=== PATIENT | male | born 1955 | race Caucasian/White ===

== ENCOUNTER 2018-01-28 04:27 | Emergency (ER) | payer MEDICAID, MEDICARE, OTHER ==
[2018-01-28 05:52] LABS: BASO % 0.7 % (0.0-2.0); EOS # 0.1 K/uL (0.0-0.7); EOS % 1.1 % (0.0-4.0); HEMOGLOBIN 14.1 g/dL (12.0-18.0); LYMPH # 1.5 K/uL (1.0-4.3); LYMPH % 21.1 % (20.0-40.0); MEAN CELL VOLUME 90.6 fl (80.0-94.0); MEAN CORPUSCULAR HEMOGLOBIN 31.4 pg (27.0-31.0); MEAN CORPUSCULAR HGB CONC 34.7 g/dL (33.0-37.0); MONO # 0.4 K/uL (0.0-0.8); MONO % 5.8 % (0.0-10.0); NEUT % 71.3 % (50.0-75.0); RBC 4.5 Mil/uL (4.40-5.90); RED CELL DISTRIBUTION WIDTH 13.7 % (11.5-14.5); WHITE BLOOD COUNT 6.9 K/uL (4.8-10.8)
[2018-01-28 05:59] LABS: ALB/GLOB RATIO 1.3 (1.0-2.1); ALBUMIN 3.9 g/dL (3.5-5.0); ALT/SGPT 86 U/L (21-72); AST/SGOT 44 U/L (17-59); BLOOD UREA NITROGEN 14 mg/dl (9-20); CALCIUM 8.9 mg/dL (8.4-10.2); GFR AFRICAN-AMERICAN > 60; GFR NON-AFRICAN AMERICAN > 60
--- NOTE | 2018-01-28 06:36 | CT ---
EXAM: CT Head Without Intravenous Contrast CLINICAL HISTORY: 62 years old, male; Signs and symptoms; Other: Headache TECHNIQUE: Axial computed tomography images of the head/brain without intravenous contrast. All CT scans at this facility use one or more dose reduction techniques, viz.: automated exposure control; ma/kV adjustment per patient size (including targeted exams where dose is matched to indication; i.e. head); or iterative reconstruction technique. Coronal and sagittal reformatted images were created and reviewed. COMPARISON: CT HEAD OR BRAIN W/O CONT 2014-02-21 16:15 FINDINGS: Brain: Mild atrophy. No intracranial hemorrhage. No mass. No definite edema. Ventricles: No hydrocephalus. Bones/joints: No acute fracture. Chronic deformity nasal bones. Soft tissues: Unremarkable. Vasculature: Minimal atherosclerotic disease of intracranial arteries. Sinuses: Extensive mucosal thickening +/- minimal fluid of LEFT maxillary sinus. Mild mucosal thickening of ethmoid sinuses. Scattered minimal mucosal thickening of remaining sinuses. Mastoid air cells: No mastoid effusion. Orbits: Unremarkable as visualized. IMPRESSION: 1. No definite acute intracranial abnormality. 2. Sinus disease. 3. Incidental/non-acute findings are described above.
--- NOTE | 2018-01-28 06:49 | ED PDOC ---
HPI: Headache Time Seen by Provider: 01/28/18 05:10 Chief Complaint (Nursing): Headache Chief Complaint (Provider): Headache History Per: Patient History/Exam Limitations: no limitations Onset/Duration Of Symptoms: Days (x 7) Current Symptoms Are (Timing): Still Present Additional Complaint(s): 62 year old male with history of hypertension and dyslipidemia presents to the ED complaining of a headache and insomnia for one week. Patient states he gas been unable to sleep past 3 am. He had a prescription for his insomnia but symptoms are not improving. He denies nausea, vomiting, fever, neck pain, and photophobia. Past Medical History Reviewed: Historical Data Vital Signs: Last Vital Signs Temp 98.7 F 01/28/18 04:44 Pulse 69 01/28/18 04:44 Resp 18 01/28/18 04:44 BP 137/81 01/28/18 04:44 Pulse Ox 97 01/28/18 04:44 - Medical History PMH: HTN Other PMH: Dyslipidimea - Surgical History Surgical History: No Surg Hx - Family History Family History: States: Unknown Family Hx - Social History Current smoker - smoking cessation education provided: No Alcohol: None Drugs: Denies - Immunization History Hx Tetanus Toxoid Vaccination: No Hx Influenza Vaccination: No Hx Pneumococcal Vaccination: No - Home Medications Home Medications: Ambulatory Orders Medication Instructions Recorded Metoprolol 25 mg PO DAILY 02/20/14 Pravastatin 25 mg PO DAILY 02/20/14 Amoxicillin/Clavulanate [Augmentin 1 tab PO BID #14 tab 01/28/18 875 MG-125 MG] hydrOXYzine Pamoate [Vistaril] 25 mg PO HS PRN #7 cap 01/28/18 - Allergies Allergies/Adverse Reactions: Allergies Allergy/AdvReac Type Severity Reaction Status Date / Time No Known Allergies Allergy Verified 02/10/15 19:06 Review of Systems ROS Statement: Except As Marked, All Systems Reviewed And Found Negative Constitutional: Negative for: Fever Gastrointestinal: Negative for: Nausea, Vomiting Musculoskeletal: Negative for: Neck Pain Neurological: Positive for: Headache, Other (Insomnia) Physical Exam - Reviewed Nursing Documentation Reviewed: Yes Vital Signs Reviewed: Yes - Physical Exam Appears: Positive for: Non-toxic, No Acute Distress Head Exam: Positive for: ATRAUMATIC, NORMOCEPHALIC Skin: Positive for: Normal Color, Warm, Dry Eye Exam: Positive for: Normal appearance, EOMI, PERRL ENT: Positive for: Normal ENT Inspection Neck: Positive for: Normal, Supple Cardiovascular/Chest: Positive for: Regular Rate, Rhythm. Negative for: Murmur Respiratory: Positive for: Normal Breath Sounds. Negative for: Respiratory Distress Gastrointestinal/Abdominal: Positive for: Normal Exam, Soft. Negative for: Tenderness Back: Positive for: Normal Inspection. Negative for: L CVA Tenderness, R CVA Tenderness Extremity: Positive for: Normal ROM Neurologic/Psych: Positive for: Alert, Oriented - Laboratory Results Result Diagrams: 01/28/18 05:40 01/28/18 05:40 - ECG O2 Sat by Pulse Oximetry: 97 (RA) Pulse Ox Interpretation: Normal Medical Decision Making Medical Decision Making: Initial Impression: 62 year old male with insomnia and headache. Initial Plan: --Tylenol 325 mg PO --Heplock Insertion Time: 635 CT HEAD OR BRAIN W/O CONT FINDINGS: Brain: Mild atrophy. No intracranial hemorrhage. No mass. No definite edema. Ventricles: No hydrocephalus. Bones/joints: No acute fracture. Chronic deformity nasal bones. Soft tissues: Unremarkable. Vasculature: Minimal atherosclerotic disease of intracranial arteries. Sinuses: Extensive mucosal thickening +/- minimal fluid of LEFT maxillary sinus. Mild mucosal thickening of ethmoid sinuses. Scattered minimal mucosal thickening of remaining sinuses. Mastoid air cells: No mastoid effusion. Orbits: Unremarkable as visualized. IMPRESSION: 1. No definite acute intracranial abnormality. 2. Sinus disease. 3. Incidental/non-acute findings are described above. Dictated By: Bruce Ta MD Dictated Date/Time: 01/28/18635 Signed By: Bruce Ta MD Date Signed: 635 Transcribed By: [facility]AD Transcribe Date/Time : 01/28/18635 ACYP02/VRD Time: 646 Labs show no significant abnormalities. Patient is stable for discharge. Diagnosis: sinusitis and insomnia. Scribe Attestation: Documented by Aga Sorensen, acting as a scribe for Carlos Oshea MD. Provider Scribe Attestation: All medical record entries made by the Scribe were at my direction and personally dictated by me. I have reviewed the chart and agree that the record accurately reflects my personal performance of the history, physical exam, medical decision making, and the department course for this patient. I have also personally directed, reviewed, and agree with the discharge instructions and disposition. Disposition - Clinical Impression Clinical Impression: Headache, Insomnia - Disposition Disposition: Routine/Home Disposition Time: 06:47 Condition: STABLE Prescriptions: Amoxicillin/Clavulanate [Augmentin 875 MG-125 MG] 1 tab PO BID #14 tab hydrOXYzine Pamoate [Vistaril] 25 mg PO HS PRN #7 cap PRN Reason: for insomnia Instructions: Sinusitis in Adults, Insomnia Forms: [facility] (Urdu) Print Language: LUXEMBOURGISH
[2018-01-28 07:13] VITALS: BP 138/78; PULSE 78; RESP 16; TEMP 98.3; O2SAT 98
== END 2018-01-28 07:14 | disposition home or self-care (01) ==
LOC: H.ER 04:27
DX: R51 Headache (principal); G47.00 Insomnia, unspecified; E78.5 Hyperlipidemia, unspecified; I10 Essential (primary) hypertension; J32.9 Chronic sinusitis, unspecified

== ENCOUNTER 2018-09-18 17:04 | Observation (INO) | payer MEDICARE, MEDICAID ==
--- NOTE | 2018-09-18 17:55 | ED PDOC ---
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 states at approximately 1400 today pt. developed chest pain which is non-r adiating and localized to the L side of the chest. Reports he checked his BP at that time which was 178/103 therefore he took an additional dose of Metoprolol 25mg which he had already taken. Further reports throughout the day he's felt weak. Further states 3 months ago he had a stress test done with Dr. Bautista which was normal and he did not require any intervention. Denies SOB, hemoptysis, leg pain, trauma, headache (contrary to triage note), fever, cough, numbness, tingling, abdominal pain. Past Medical History Reviewed: Historical Data, Nursing Documentation, Vital Signs Vital Signs: Last Vital Signs Temp 98.6 F 09/18/18 17:06 Pulse 88 09/18/18 17:06 Resp 18 09/18/18 17:06 BP 172/98 H 09/18/18 17:06 Pulse Ox 99 09/18/18 17:06 - Medical History PMH: HTN - Family History Family History: States: Unknown Family Hx - Immunization History Hx Tetanus Toxoid Vaccination: No Hx Influenza Vaccination: No Hx Pneumococcal Vaccination: No - Home Medications Home Medications: Ambulatory Orders Medication Instructions Recorded Metoprolol 25 mg PO DAILY 02/20/14 Pravastatin 25 mg PO DAILY 02/20/14 Amoxicillin/Clavulanate [Augmentin 1 tab PO BID #14 tab 01/28/18 875 MG-125 MG] hydrOXYzine Pamoate [Vistaril] 25 mg PO HS PRN #7 cap 01/28/18 - Allergies Allergies/Adverse Reactions: Allergies Allergy/AdvReac Type Severity Reaction Status Date / Time No Known Allergies Allergy Verified 02/10/15 19:06 Review of Systems ROS Statement: Except As Marked, All Systems Reviewed And Found Negative Cardiovascular: Positive for: Chest Pain Physical Exam - Reviewed Nursing Documentation Reviewed: Yes Vital Signs Reviewed: Yes - Physical Exam Appears: Positive for: Well, Non-toxic, No Acute Distress Head Exam: Positive for: ATRAUMATIC, NORMAL INSPECTION, NORMOCEPHALIC Skin: Positive for: Normal Color, Warm. Negative for: Rash Eye Exam: Positive for: EOMI, Normal appearance, PERRL ENT: Positive for: Normal ENT Inspection Neck: Positive for: Normal, Painless ROM Cardiovascular/Chest: Positive for: Regular Rate, Rhythm, Chest Non Tender. Negative for: Tachycardia Respiratory: Positive for: Normal Breath Sounds. Negative for: Respiratory Distress Gastrointestinal/Abdominal: Positive for: Normal Exam, Soft. Negative for: Tenderness, Distended Back: Positive for: Normal Inspection Extremity: Positive for: Normal ROM. Negative for: Pedal Edema, Calf Tenderness (b/l) Neurologic/Psych: Positive for: Alert, Oriented (x3), Other (equal electrician yard strength b/l). Negative for: Aphasia, Facial Droop - Laboratory Results Result Diagrams: 09/18/18 18:15 09/18/18 18:15 - ECG ECG: Positive for: Interpreted By Me ECG Rhythm: Positive for: Sinus Rhythm. Negative for: ST/T Changes Rate: 87 O2 Sat by Pulse Oximetry: 99 - Radiology X-Ray: Interpreted by Me (cxr) X-Ray Interpretation: No Acute Disease - Progress ED Course And Treament: Labs, EKG, ASA chew, CXR, continuous cardiac monitoring ordered. 1950 Case and labs d/w Dr. Rendon who recommends 2nd troponin and enalapril 10mg PO. As per HEART pathway pt. is at 3% risk at this time. Results and plan d/w patient and family who agree to 2nd troponin. 2nd troponin ordered to be drawn at 5. RN made aware. Enalapril 10mg PO ordered. Disposition - Clinical Impression Clinical Impression: Chest pain - Patient ED Disposition Is Patient to be Admitted: Transfer of Care (Signed out to Kathleen GUNN pending 2nd troponing and re-eval) - Disposition Disposition Time: 20:03 Condition: FAIR Forms: [facility] (Frisian)
[2018-09-18 18:25] LABS: BASO # 0.1 K/uL (0.0-0.2); BASO % 0.8 % (0.0-2.0); EOS % 0.5 % (0.0-4.0); LYMPH # 1.9 K/uL (1.0-4.3); LYMPH % 20.2 % (20.0-40.0); MEAN CELL VOLUME 90.9 fl (80.0-94.0); MEAN CORPUSCULAR HEMOGLOBIN 31.3 pg (27.0-31.0); MEAN CORPUSCULAR HGB CONC 34.4 g/dL (33.0-37.0); MEAN PLATELET VOLUME 9.6 fl (7.2-11.7); MONO # 0.7 K/uL (0.0-0.8); MONO % 7.2 % (0.0-10.0); NEUT # 6.7 K/uL (1.8-7.0); NEUT % 71.3 % (50.0-75.0); NRBC % 0.1 % (0.0-0.0); RBC 4.47 Mil/uL (4.40-5.90); RED CELL DISTRIBUTION WIDTH 13.5 % (11.5-14.5); WHITE BLOOD COUNT 9.5 K/uL (4.8-10.8)
[2018-09-18 18:37] LABS: ALB/GLOB RATIO 1.3 (1.0-2.1); ALBUMIN 4.3 g/dL (3.5-5.0); ALT/SGPT 61 U/L (21-72); AST/SGOT 37 U/L (17-59); BLOOD UREA NITROGEN 18 mg/dl (9-20); CALCIUM 9.3 mg/dL (8.4-10.2); GFR NON-AFRICAN AMERICAN > 60
--- NOTE | 2018-09-18 23:05 | ED PDOC ---
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 Patient states he is still with fatigue and left-sided chest pain Case discussed with Dr. Evans, medical service on-call, for placement in observation; recommends cardiology consult Disposition - Clinical Impression Clinical Impression: Chest pain - POA Present On Arrival: None - Disposition Disposition: Hospitalized as Observation Patient Disposition Time: 23:05 Condition: FAIR
[2018-09-19 05:51] LABS: HDL CHOLESTEROL 42 MG/DL (30-70)
[2018-09-19 06:02] LABS: LDL CHOLESTEROL 80 mg/dL (0-129)
[2018-09-19] MEDS: Pantoprazole 40 mg EC Tab PO SCH (08:53)
[2018-09-19] MEDS: Metoprolol Succinate 50 mg XL Tab PO SCH (08:53)
[2018-09-19] MEDS: Enoxaparin 40 mg Syringe SC SCH (08:55)
--- NOTE | 2018-09-19 12:51 | RAD ---
Date of service: 09/18/2018 HISTORY: chest pain COMPARISON: 12/11/2013 FINDINGS: LUNGS: No active pulmonary disease. PLEURA: No significant pleural effusion identified, no pneumothorax apparent. CARDIOVASCULAR: No atherosclerotic calcification present No radiographic findings to suggest acute or significant cardiovascular disease. OSSEOUS STRUCTURES: No significant abnormalities. VISUALIZED UPPER ABDOMEN: Normal. OTHER FINDINGS: None. IMPRESSION: No active disease. No significant interval change compared to the prior examination(s).
--- NOTE | 2018-09-19 14:27 | CARD ---
APPROVED REPORT Date of service: 09/18/2018 EKG Measurement Heart [id number] <Conclusion> Normal sinus rhythm Normal ECG
--- NOTE | 2018-09-19 15:47 | HP ---
SUBJECTIVE: Mr. Braden is a 63-year-old male who was admitted via the emergency room because of chest pain on the left side that started on the day of admission. He was seen in the emergency room and had an elevated blood pressure of 178/103 and was therefore admitted to rule out acute coronary syndrome. PAST MEDICAL HISTORY: He has a history of hypertension. MEDICATIONS: Is on metoprolol at home. FAMILY HISTORY: Nonrevealing. SOCIAL HISTORY: Socially, he does not smoke or drink. REVIEW OF SYSTEMS: Essentially unremarkable. PHYSICAL EXAMINATION: GENERAL: The patient is alert, oriented, appears to be comfortable at present. VITAL SIGNS: Blood pressure 172/98 with a pulse of 88, respiratory rate 18. He is afebrile. O2 sat 99% on room air. SKIN: Shows fair turgor. HEENT: Pupils are reactive to light and accommodation. Mouth shows fair hygiene. JVP flat. LUNGS: Clear. HEART: Regular. No murmurs or gallop. No chest wall tenderness. ABDOMEN: Soft, nontender, organomegaly. EXTREMITIES: Show no edema or cyanosis. CENTRAL NERVOUS SYSTEM: Exam is grossly intact. LABORATORY DATA: WBC 9.5, hemoglobin 14, platelet count [id number]. Sodium 138, potassium 4.6, BUN of 18, creatinine 0.9, serum glucose 115. EKG, regular sinus rhythm, no ST changes. Troponin x3 negative. Chest x-ray No acute disease. IMPRESSION: Chest pain, hypertension, one has to rule the acute coronary syndrome. PLAN: The plan is cardiology evaluation. Further therapy will depend on cardiac clearance. Yoandy Evans MD
[2018-09-19] MEDS ORDERED: Nitroglycerin 2% Ointment Foilpak UD TOP ONE (18:10)
[2018-09-19] MEDS: Nitroglycerin 2% Ointment Foilpak UD TOP SCH ×2 (18:18→21:21)
--- NOTE | 2018-09-20 03:09 | CON ---
DATE: 09/19/2018 REASON FOR CONSULTATION: Chest pain. HISTORY OF PRESENT ILLNESS: The patient is a 63-year-old male, who presents because of chest discomfort involving the left side of the chest, and was reported to have high blood pressure of 178/103. The patient is being followed by Dr. Bautista, director prison, as an outpatient, but the patient does not recall having any cardiac intervention and denied any history of heart attack in the past. SOCIAL HISTORY: Nonsmoker, nondrinker. MEDICATIONS: , aspirin 81 mg once a day, Cozaar 25 mg once a day, Lexapro 20 mg once a day, Lipitor 40 mg once a day, Lovenox 40 mg subcutaneous once a day, Protonix 40 mg p.o. once a day, and Toprol XL 50 mg daily. PHYSICAL EXAMINATION: GENERAL: The patient is a middle-aged male, who does not appear to be in acute distress. VITAL SIGNS: Blood pressure 114/70, heart rate 84, temperature 97.9, and respirations 21. HEENT: Normocephalic. CHEST: Clear. HEART: S1 and S2, regular. ABDOMEN: Soft. EXTREMITIES: No edema or calf tenderness. EKG revealed sinus rhythm at the rate of 76. Consider old anterior infarct. Minimal voltage criteria for LVH. Echocardiographic study performed in 12/2014 revealed mild concentric LVH with normal ejection fraction, abnormal motion of the apical lateral and apical septal and basal inferior septal wall of the left ventricle. LABORATORY DATA: SMA-7 is within normal limits, except for glucose of 115. A total of four sets of troponin are negative. Lipid profile is within normal limits. Hemoglobin, hematocrit, white count, and platelet counts are within normal limits. Chest x-ray revealed borderline cardiomegaly and prominent bronchovascular markings. ASSESSMENT: 1. Chest pain, myocardial infarction is ruled out. 2. History of segmental hypokinesis, on an echocardiographic study performed in 12/2014. 3. Hypertension. 4. History of depression. RECOMMENDATIONS: Continue aspirin 81 mg once a day, Cozaar 25 mg once a day, Lipitor 40 mg once a day, Lovenox 40 mg subcutaneous once a day, Lopressor 50 mg once a day. Obtain D-dimer as well as an echocardiogram. Giovanny Mitchell MD
[2018-09-20] MEDS: Nitroglycerin 2% Ointment Foilpak UD TOP SCH (04:49)
[2018-09-20 06:24] VITALS: TEMP 98
--- NOTE | 2018-09-20 07:03 | CARD ---
APPROVED REPORT Date of service: 09/19/2018 EKG Measurement Heart [id number] <Conclusion> Normal sinus rhythm Minimal voltage criteria for LVH, may be normal variant Inferior infarct, age undetermined Abnormal ECG
[2018-09-20] MEDS: Pantoprazole 40 mg EC Tab PO SCH (08:39)
[2018-09-20] MEDS: Metoprolol Succinate 50 mg XL Tab PO SCH (08:40)
[2018-09-20] MEDS: Enoxaparin 40 mg Syringe SC SCH (08:41)
--- NOTE | 2018-09-20 09:45 | CP.PCM.PN ---
Subjective - Date & Time of Evaluation Date of Evaluation: 09/20/18 Time of Evaluation: 09:46 - Subjective Subjective: PT C/O FEELING DEPRESSED AND SUICIDAL 1 TO 1 NURSING CARE STARTED LAST NIGHT ACCORDING TO DAUGHTER,PT HAD A SIMILAR EPISODE RECENTLY AND WAS CONFINED TO THE PSYCH KIM HE IS CHEST PAIN FREE TODAY NO NEW CLINICAL FINDINGS Objective - Vital Signs/Intake and Output Vital Signs (last 24 hours): Temp Pulse Resp BP Pulse Ox 98 F 86 19 129/75 93 L 09/20/18 08:22 09/20/18 08:44 09/20/18 08:22 09/20/18 08:44 09/20/18 08:22 - Medications Medications: Current Medications Acetaminophen (Tylenol 325mg Tab) 650 mg PO Q4 PRN PRN Reason: Pain, moderate (4-7) Last Admin: 09/19/18 21:25 Dose: 650 mg Aspirin (Aspirin Chewable) 81 mg PO DAILY [facility] Last Admin: 09/20/18 08:39 Dose: 81 mg Atorvastatin Calcium (Lipitor) 40 mg PO DAILY [facility] Last Admin: 09/20/18 08:40 Dose: 40 mg Enoxaparin Sodium (Lovenox) 40 mg SC DAILY [facility]; Protocol Last Admin: 09/20/18 08:41 Dose: 40 mg Escitalopram Oxalate (Lexapro) 20 mg PO DAILY [facility] Last Admin: 09/20/18 08:40 Dose: 20 mg Losartan Potassium (Cozaar) 25 mg PO BID [facility] Last Admin: 09/20/18 08:44 Dose: 25 mg Metoprolol Succinate (Toprol Xl) 50 mg PO DAILY [facility] Last Admin: 09/20/18 08:40 Dose: 50 mg Nitroglycerin (Nitro-Bid 2% Oint) 1 ea TOP Q6 [facility] Last Admin: 09/20/18 04:49 Dose: Not Given Pantoprazole Sodium (Protonix Ec Tab) 40 mg PO DAILY [facility] Last Admin: 09/20/18 08:39 Dose: 40 mg Risperidone (Risperdal Tab) 3 mg PO DAILY [facility] Last Admin: 09/20/18 08:40 Dose: 3 mg - Labs Labs: 09/18/18 18:15 09/18/18 18:15 - Constitutional Appears: No Acute Distress - Head Exam Head Exam: ATRAUMATIC, NORMAL INSPECTION, NORMOCEPHALIC - Eye Exam Eye Exam: EOMI, Normal appearance, PERRL Pupil Exam: NORMAL ACCOMODATION, PERRL - ENT Exam ENT Exam: Mucous Membranes Moist, Normal Exam - Neck Exam Neck Exam: Full ROM, Normal Inspection. absent: Lymphadenopathy - Respiratory Exam Respiratory Exam: Clear to Ausculation Bilateral, NORMAL BREATHING PATTERN - Cardiovascular Exam Cardiovascular Exam: REGULAR RHYTHM, +S1, +S2. absent: Murmur - GI/Abdominal Exam GI & Abdominal Exam: Soft, Normal Bowel Sounds. absent: Tenderness - Rectal Exam Rectal Exam: NORMAL INSPECTION - Extremities Exam Extremities Exam: Full ROM, Normal Capillary Refill, Normal Inspection. absent: Joint Swelling, Pedal Edema - Back Exam Back Exam: NORMAL INSPECTION - Neurological Exam Neurological Exam: Alert, Awake, CN II-XII Intact, Normal Gait, Oriented x3 - Psychiatric Exam Psychiatric exam: Depressed, Flat Affect - Skin Skin Exam: Dry, Intact, Normal Color, Warm Assessment and Plan - Assessment and Plan (Free Text) Assessment: CHEST PAIN RESOLVED MAJOR DEPRESSION Plan: MEDICALLY CLEARED FOR TRANSFER TO PSYCH
--- NOTE | 2018-09-20 09:48 | CP.PCM.DIS ---
Provider - Provider Date of Admission: 09/18/18 23:02 Attending physician: Yoandy Evans MD Consults: 09/18/18 23:02 Cardiology Consult Stat Comment: am Consulting Provider: Giovanny Mitchell Consulting Physician: Giovanny Mitchell Reason for Consult: chest pain, HTN 09/19/18 08:00 Cardiology Consult Routine Comment: Consulting Provider: Giovanny Mitchell Consulting Physician: Giovanny Mitchell Reason for Consult: Cardiac evaluation 09/19/18 17:42 Psychiatry Consult Routine Comment: Consulting Provider: Anh Samuel Consulting Physician: Anh Samuel Reason for Consult: depression Time Spent in preparation of Discharge (in minutes): 30 Diagnosis - Discharge Diagnosis (1) Depressed Status: Acute (2) Chest pain Status: Acute Hospital Course - Lab Results Lab Results: Most Recent Lab Values WBC 9.5 K/uL (4.8-10.8) 09/18/18 18:15 RBC 4.47 Mil/uL (4.40-5.90) 09/18/18 18:15 Hgb 14.0 g/dL (12.0-18.0) 09/18/18 18:15 Hct 40.7 % (35.0-51.0) 09/18/18 18:15 MCV 90.9 fl (80.0-94.0) 09/18/18 18:15 MCH 31.3 pg (27.0-31.0) H 09/18/18 18:15 MCHC 34.4 g/dL (33.0-37.0) 09/18/18 18:15 RDW 13.5 % (11.5-14.5) 09/18/18 18:15 Plt Count 174 K/uL (130-400) 09/18/18 18:15 MPV 9.6 fl (7.2-11.7) 09/18/18 18:15 Neut % (Auto) 71.3 % (50.0-75.0) 09/18/18 18:15 Lymph % (Auto) 20.2 % (20.0-40.0) 09/18/18 18:15 [place] % (Auto) 7.2 % (0.0-10.0) 09/18/18 18:15 Eos % (Auto) 0.5 % (0.0-4.0) 09/18/18 18:15 Baso % (Auto) 0.8 % (0.0-2.0) 09/18/18 18:15 Neut # (Auto) 6.7 K/uL (1.8-7.0) 09/18/18 18:15 Lymph # (Auto) 1.9 K/uL (1.0-4.3) 09/18/18 18:15 [place] # (Auto) 0.7 K/uL (0.0-0.8) 09/18/18 18:15 Eos # (Auto) 0.0 K/uL (0.0-0.7) 09/18/18 18:15 Baso # (Auto) 0.1 K/uL (0.0-0.2) 09/18/18 18:15 D-Dimer, Quantitative < 200 ng/mlDDU (0-230) 09/19/18 16:52 Sodium 138 mmol/l (132-148) 09/18/18 18:15 Potassium 4.6 MMOL/L (3.6-5.0) 09/18/18 18:15 Chloride 107 mmol/L (98-107) 09/18/18 18:15 Carbon Dioxide 22 mmol/L (22-30) 09/18/18 18:15 Anion Gap 14 (10-20) 09/18/18 18:15 BUN 18 mg/dl (9-20) 09/18/18 18:15 Creatinine 0.9 mg/dl (0.8-1.5) 09/18/18 18:15 Est GFR ( Amer) > 60 09/18/18 18:15 Est GFR (Non-Af Amer) > 60 09/18/18 18:15 Random Glucose 115 mg/dL (75-110) H 09/18/18 18:15 Calcium 9.3 mg/dL (8.4-10.2) 09/18/18 18:15 Total Bilirubin 1.1 mg/dl (0.2-1.3) 09/18/18 18:15 AST 37 U/L (17-59) 09/18/18 18:15 ALT 61 U/L (21-72) 09/18/18 18:15 Alkaline Phosphatase 53 U/L (38-126) 09/18/18 18:15 Troponin I < 0.0120 ng/mL (0.00-0.120) 09/19/18 21:37 Total Protein 7.7 G/DL (6.3-8.2) 09/18/18 18:15 Albumin 4.3 g/dL (3.5-5.0) 09/18/18 18:15 Globulin 3.4 gm/dL (2.2-3.9) 09/18/18 18:15 Albumin/Globulin Ratio 1.3 (1.0-2.1) 09/18/18 18:15 Triglycerides 115 mg/DL (0-149) D 09/19/18 04:36 Cholesterol 128 mg/dL (0-199) 09/19/18 04:36 LDL Cholesterol Direct 80 mg/dL (0-129) 09/19/18 04:36 HDL Cholesterol 42 MG/DL (30-70) 09/19/18 04:36 - Hospital Course Hospital Course: DEPRESSED OTHERWISE NO NEW FINDINGS Discharge Exam - Head Exam Head Exam: ATRAUMATIC, NORMAL INSPECTION, NORMOCEPHALIC - Eye Exam Eye Exam: EOMI, Normal appearance, PERRL Pupil Exam: NORMAL ACCOMODATION, PERRL - GI/Abdominal Exam GI & Abdominal Exam: Normal Bowel Sounds - Rectal Exam Rectal Exam: NORMAL INSPECTION - Neurological Exam Neurological exam: Alert, CN II-XII Intact, Normal Gait, Oriented x3, Reflexes N ormal - Psychiatric Exam Psychiatric exam: Depressed, Flat Affect - Skin Skin Exam: Dry, Intact, Normal Color, Warm Discharge Plan - Follow Up Plan Condition: FAIR Disposition: HOME/ ROUTINE Additional Instructions: TRANSFER TO PSYCH
--- NOTE | 2018-09-20 11:22 | CP.PCM.CON ---
History of Present Illness - History of Present Illness History of Present Illness: pt is 63 ys old male with previous psychiatric diagnosis of depression admitted to ICU for chest pain pt on evaluation presenting with depressed mood and affect, reported his depression started 8months ago due to conflict with his , pt was admitted to [facility] last February for a suicidal attempt which he is unable to give the details for pt at current time reported decreased sleep with early insomnia , decreased appetite, low energy poor concentration continues to report suicidal ideations, but unable to verbalize a plan , pt denied perceptual disturbances yet appears to be internally occupied, speech is soft and underproductive, patient is awake alert ox3 Past Patient History - Past Medical History & Family History Past Medical History?: Yes - Past Social History Smoking Status: Never Smoked - CARDIAC Hx Cardiac Disorders: Yes Hx Hypertension: Yes - PULMONARY Hx Respiratory Disorders: No - NEUROLOGICAL Hx Neurological Disorder: No - HEENT Hx HEENT Problems: No - RENAL Hx Chronic Kidney Disease: No - ENDOCRINE/METABOLIC Hx Endocrine Disorders: No - HEMATOLOGICAL/ONCOLOGICAL Hx Blood Disorders: No Hx AIDS: No Hx Human Immunodeficiency Virus (HIV): No - INTEGUMENTARY Hx Dermatological Problems: No - MUSCULOSKELETAL/RHEUMATOLOGICAL Hx Musculoskeletal Disorders: No Hx Falls: No - GASTROINTESTINAL Hx Gastrointestinal Disorders: No - GENITOURINARY/GYNECOLOGICAL Hx Genitourinary Disorders: No - PSYCHIATRIC Hx Psychophysiologic Disorder: No Hx Substance Use: No - SURGICAL HISTORY Hx Surgeries: Yes Hx Herniorrhaphy: Yes - ANESTHESIA Hx Anesthesia: Yes Hx Anesthesia Reactions: No Meds Allergies/Adverse Reactions: Allergies Allergy/AdvReac Type Severity Reaction Status Date / Time No Known Allergies Allergy Verified 02/10/15 19:06 - Medications Medications: Current Medications Acetaminophen (Tylenol 325mg Tab) 650 mg PO Q4 PRN PRN Reason: Pain, moderate (4-7) Last Admin: 09/19/18 21:25 Dose: 650 mg Aspirin (Aspirin Chewable) 81 mg PO DAILY [facility] Last Admin: 09/20/18 08:39 Dose: 81 mg Atorvastatin Calcium (Lipitor) 40 mg PO DAILY [facility] Last Admin: 09/20/18 08:40 Dose: 40 mg Enoxaparin Sodium (Lovenox) 40 mg SC DAILY [facility]; Protocol Last Admin: 09/20/18 08:41 Dose: 40 mg Escitalopram Oxalate (Lexapro) 20 mg PO DAILY [facility] Last Admin: 09/20/18 08:40 Dose: 20 mg Losartan Potassium (Cozaar) 25 mg PO BID [facility] Last Admin: 09/20/18 08:44 Dose: 25 mg Metoprolol Succinate (Toprol Xl) 50 mg PO DAILY [facility] Last Admin: 09/20/18 08:40 Dose: 50 mg Nitroglycerin (Nitro-Bid 2% Oint) 1 ea TOP Q6 [facility] Last Admin: 09/20/18 04:49 Dose: Not Given Pantoprazole Sodium (Protonix Ec Tab) 40 mg PO DAILY [facility] Last Admin: 09/20/18 08:39 Dose: 40 mg Risperidone (Risperdal Tab) 3 mg PO DAILY [facility] Last Admin: 09/20/18 08:40 Dose: 3 mg Results - Vital Signs Recent Vital Signs: Last Vital Signs Temp 98 F 09/20/18 08:22 Pulse 86 09/20/18 08:44 Resp 19 09/20/18 08:22 BP 129/75 09/20/18 08:44 Pulse Ox 93 L 09/20/18 08:22 - Labs Result Diagrams: 09/18/18 18:15 09/18/18 18:15 Labs: Laboratory Results - last 24 hr 09/19/18 09/19/18 09/19/18 13:24 16:52 21:37 D-Dimer, Quantitative < 200 Troponin I < 0.0120 < 0.0120 Assessment & Plan - Assessment and Plan (Free Text) Assessment: major depression recurrent severe with psychotic features Plan: patient at current mental status continues to verbalize active suicidal ideation continue 1:1 observation patient to be transferred to psychiatry upon medical clearance
[2018-09-20 11:47] VITALS: BP 115/58; PULSE 82; RESP 21; O2SAT 97
--- NOTE | 2018-09-20 19:53 | CARD ---
APPROVED REPORT Date of service: 09/20/2018 EXAM: Two-dimensional and M-mode echocardiogram with Doppler and color Doppler. Other Information Quality : GoodRhythm : NSR INDICATION Chest Pain 2D DIMENSIONS IVSd1.27 (0.7-1.1cm)LVDd4.47 (3.9-5.9cm) LVOT Diameter2.69 (1.8-2.4cm)PWd1.12 (0.7-1.1cm) IVSs1.62 (0.8-1.2cm)LVDs2.22 (2.5-4.0cm) FS (%) 50.3 %PWs1.61 (0.8-1.2cm) M-Mode DIMENSIONS Left Atrium (MM)3.24 (2.5-4.0cm)IVSd1.46 (0.7-1.1cm) Aortic Root3.84 (2.2-3.7cm)LVDd4.93 (4.0-5.6cm) Aortic Cusp Exc.2.38 (1.5-2.0cm)PWd1.42 (0.7-1.1cm) IVSs2.02 cmFS (%) 50 % LVDs2.48 (2.0-3.8cm)PWs1.72 cm Aortic Valve AoV Peak Ypihjmmo240.9cm/sAoV VTI20.5cmAO Peak GR.8mmHg LVOT Peak Xqonfgno16.9cm/sLVOT VTI14.02cmAO Mean GR.4mmHg JO ANN (VMAX)1.36lh3WIX (VTI)1.96cm2 Mitral Valve MV E Mtdpsnev21.9cm/sMV DECEL [id number] A Qjggxcmb58.2cm/s MV QHP06xgO/A ratio0.6MVA (PHT)2.98cm2 TDI E/Lateral E'0.0E/Medial E'0.0 LEFT VENTRICLE The left ventricle is normal size. There is normal left ventricular wall thickness. The left ventricular systolic function is normal. The estimated ejection fraction is 60-65% No regional wall motion abnormalities noted.. Transmitral Doppler flow pattern is Grade I-abnormal relaxation pattern. No left ventricle thrombus noted on this study. There is no ventricular septal defect visualized. There is no left ventricular aneurysm. There is no mass noted in the left ventricle. RIGHT VENTRICLE The right ventricle is normal size. There is normal right ventricular wall thickness. The right ventricular systolic function is normal. ATRIA The left atrium size is normal. The right atrium size is normal. The interatrial septum is intact with no evidence for an atrial septal defect. AORTIC VALVE The aortic valve is normal in structure. No aortic regurgitation is present. There is no aortic valvular stenosis. There is no aortic valvular vegetation. MITRAL VALVE The mitral valve is normal in structure. There is no evidence of mitral valve prolapse. There is no mitral valve stenosis. There is no mitral valve regurgitation noted. TRICUSPID VALVE The tricuspid valve is normal in structure. There is no significant tricuspid valve regurgitation noted. There is no tricuspid valve prolapse or vegetation. There is no tricuspid valve stenosis. PULMONIC VALVE The pulmonary valve is normal in structure. There is no pulmonic valvular regurgitation. There is no pulmonic valvular stenosis. GREAT VESSELS The aortic root is normal in size. The ascending aorta is normal in size. The pulmonary artery is normal. The IVC is normal in size and collapses >50% with inspiration. PERICARDIAL EFFUSION There is no pericardial effusion. There is no pleural effusion. <Conclusion> The estimated ejection fraction is 60-65% Transmitral Doppler flow pattern is Grade I-abnormal relaxation pattern. The left atrium size is normal. There is no significant tricuspid valve regurgitation noted.
--- NOTE | 2018-09-20 20:04 | CARD ---
APPROVED REPORT Date of service: 09/19/2018 EKG Measurement Heart [id number] <Conclusion> Normal sinus rhythm Minimal voltage criteria for LVH, may be normal variant Possible Inferior infarct, age undetermined Abnormal ECG
== END 2018-09-20 11:50 ==
LOC: H.ER 17:04 → H.ERHOLD 23:02 → H.ICU/CCU 09-19 12:00
PROVIDERS: ADMIT Internal Medicine Pulmonary Disease; ATTEND Internal Medicine Pulmonary Disease
DX: R07.89 Other chest pain (principal); F33.3 Major depressive disorder, recurrent, severe with psychotic symptoms; G47.00 Insomnia, unspecified; I10 Essential (primary) hypertension; R45.851 Suicidal ideations; Z79.899 Other long term (current) drug therapy; I95.9 Hypotension, unspecified
CPT/HCPCS: 71045; 80053; 80061; 84484; 85025; 85378; 87081; 93005; 93306; 96372; 99285; G0378; J1650

== ENCOUNTER 2018-09-20 12:04 | Inpatient (IN) | payer MEDICARE, MEDICAID ==
[2018-09-20 12:33] VITALS: BMI 28.5
[2018-09-20] MEDS ORDERED: Bismuth Subsalicylate 262 mg/15 ml Sus (240 ml) PO PRN (12:34)
[2018-09-20] MEDS ORDERED: Alum-Mag Hydrox-Simethicone Susp (30 mL) PO PRN (12:34)
[2018-09-20] MEDS ORDERED: Magnesium Hydroxide Susp 30 ml UD PO PRN (12:34)
--- NOTE | 2018-09-20 12:38 | PCM.PSYCH ---
Initial Psychiatric Evaluation - Initial Psychiatric Evaluation Type of Admission: Voluntary Legal Status: Capacity Chief Complaint (in patient's own words): "I'm depressed." Patient's Reaction to Hospitalization: HPI: 63 yo male w/ h/o depression w/ psychotic features, transferred from the medical unit where he was evaluated for chest pain, now resolved. Patient presents with depression, low mood, low energy, poverty of speech, denies acute psychosis (AH/VH) but seems internally preoccupied, poor sleep. He denies acute SI/HI, but reported suicidal ideation on previous evaluation today. PPHx: H/o depression and suicide attempt in February 2018 by jumping in a river, was hospitalized at [facility] at that time; current outpatient tx w/ Dr. Krishnan, on Lexapro and Risperdal PMHx: HTN, HLD, GERD, Hernia, R eye cataract ALL: NKDA SHx: Lives w/ , has two adult children (28/29), completed HS, from [place]; denies drugs/etoh/cig use Current Medications: Active Medications Generic Name Dose Route Start Last Admin Trade Name Freq PRN Reason Stop Dose Admin Acetaminophen 650 mg 09/20/18 12:34 Tylenol 325mg Tab PO Q4 PRN Pain, moderate (4-7) Al Hydrox/Mg Hydrox/Simethicone 30 ml 09/20/18 12:34 Maalox Plus 30 Ml PO Q4 PRN Dyspepsia Bismuth Subsalicylate 524 mg 09/20/18 12:34 Pepto-Bismol PO Q4 PRN Diarrhea Lorazepam 0.5 mg 09/20/18 12:34 Ativan PO 10/04/18 12:35 HS PRN Insomnia Lorazepam 0.5 mg 09/20/18 12:34 Ativan PO 10/04/18 12:35 Q6 PRN Anixety/Agitation Magnesium Hydroxide 30 ml 09/20/18 12:34 Milk Of Magnesia PO HS PRN Constipation Past Psychiatric History - Past Psychiatric History Previous Treatment History: Inpatient Pertinent Medical Hx (Current Medical&Sleep Prob, Allergies): Allergies Allergy/AdvReac Type Severity Reaction Status Date / Time No Known Allergies Allergy Verified 02/10/15 19:06 Aspirin [Aspirin Chewable] 81 mg PO DAILY 09/18/18 Atorvastatin [Lipitor] 40 mg PO DAILY 09/18/18 Escitalopram [Lexapro] 20 mg PO DAILY 09/18/18 Losartan [Cozaar] 25 mg PO BID 09/18/18 Metoprolol Succinate XL [Toprol XL] 50 mg PO DAILY 09/18/18 Pantoprazole [Protonix EC Tab] 40 mg PO DAILY 09/18/18 Risperidone [Risperdal] 3 mg PO DAILY 09/18/18 Review of Systems - Psychiatric Psychiatric: As Per HPI, Abnormal Sleep Pattern, Anhedonia, Anxiety, Behavioral Changes, Change in Appetite, Depression, Difficulty Concentrating, Hopelessness, Irritability, Suicidal Ideation Mental Status Examination - Personal Presentation Personal Presentation: Looks stated age - Affect Affect: Constricted, Depressed - Motor Activity Motor Activity: Calm - Reliability in Providing Information Reliability in Providing Information: Poor, due to altered mood - Speech Speech: Coherent, Other (Poverty of speech) - Mood Mood: Depressed - Formal Thought Process Formal Thought Process: Other (Poverty of speech) - Obsessions/Compulsions Obsessions: No Compulsions: No - Cognitive Functions Orientation: Person, Place, Situation, Time Judgement: Imparied, as evidence by: Lack of insight into illness - Risk Risk: Suicidal, Diminished functioning - Strength & Assets Inventory Strength & Assets Inventory: Family support, Cooperative - Limitations Limitations: Decreased memory, recent DSM 5 DX - DSM 5 DSM 5 Diagnosis: Major Depressive Disorder w/ Psychotic Symptoms - Recommended/Plan of Treatment Treatment Recommendations and Plan of Treatment: Major Depressive Disorder w/ Psychotic Symptoms -Admit to psychiatry unit -Individual and group therapy -Medicine consult -Continue Lexapro 20 mg PO Daily -Start Trazodone 50 mg PO HS -Increase Risperdal to 2 mg PO Q12 -Obtain collateral history -Disposition planning Projected ELOS: 7-10 days Discharge Plan and Discharge Criteria: Discharge when patient is psychiatrically stable - Smoking Cessation Smoking Cessation Initiated: No Reason for not providing: Not indicated
--- NOTE | 2018-09-20 13:34 | PCM.BM ---
Treatment Plan Problems - Problems identified on initial assessmt hopeless/helpeless Date Initiated: 09/20/18 Time Initiated: 13:31 Date resolved: 09/27/18 Assessment reference: NA Status: Active Priority: 1 Treatment assets and liabiliti Patient Assests: cooperative, motivated Patient Liabilities: medical problems - Milieu Protocol Maintain good personal hygiene: every shift Encourage regular showers, every shift Remind patient to perform daily oral care, every shift Assist patient to perform ADL's Maintain personal safety: every shift Educate patient to report safety concerns to staff, every shift Monitor environment for contraband/sharps Medication safety: Monitor for expected outcome, potential side effects: every shift, Assess barriers to learning: every shift, Assess readiness for medication education: every shift Milieu Narrative: Major Depressive Disorder w/ Psychotic Symptoms -Admit to psychiatry unit -Individual and group therapy -Medicine consult -Continue Lexapro 20 mg PO Daily -Start Trazodone 50 mg PO HS -Increase Risperdal to 2 mg PO Q12 -Obtain collateral history -Disposition planning Discharge/Continuing Care - Treatment Team Participation Patient/Family/SO Statement: Major Depressive Disorder w/ Psychotic Symptoms -Admit to psychiatry unit -Individual and group therapy -Medicine consult -Continue Lexapro 20 mg PO Daily -Start Trazodone 50 mg PO HS -Increase Risperdal to 2 mg PO Q12 -Obtain collateral history -Disposition planning
[2018-09-21 07:17] LABS: HEMOGLOBIN 14.3 g/dL (12.0-18.0); MEAN CELL VOLUME 89.9 fl (80.0-94.0); MEAN CORPUSCULAR HEMOGLOBIN 30.6 pg (27.0-31.0); RBC 4.68 Mil/uL (4.40-5.90); RED CELL DISTRIBUTION WIDTH 13.8 % (11.5-14.5); WHITE BLOOD COUNT 8.4 K/uL (4.8-10.8)
[2018-09-21 07:41] LABS: ALB/GLOB RATIO 1.2 (1.0-2.1); ALBUMIN 3.9 g/dL (3.5-5.0); ALT/SGPT 51 U/L (21-72); AST/SGOT 30 U/L (17-59); BLOOD UREA NITROGEN 21 mg/dl (9-20); CALCIUM 9.1 mg/dL (8.4-10.2); GFR NON-AFRICAN AMERICAN > 60; HDL CHOLESTEROL 35 MG/DL (30-70)
[2018-09-21 07:57] LABS: T4 9.12 ug/dl (5.5-11.0)
[2018-09-21 08:00] LABS: LDL CHOLESTEROL 81 mg/dL (0-129)
[2018-09-21 08:15] LABS: FERRITIN 54.4 ng/Ml (17.9-464)
[2018-09-21] MEDS: Pantoprazole 40 mg EC Tab PO SCH (09:25)
[2018-09-21] MEDS: Risperidone M TAB 2 MG PO SCH ×2 (09:26→21:06)
[2018-09-21] MEDS: Metoprolol Succinate 50 mg XL Tab PO SCH (09:27)
--- NOTE | 2018-09-21 09:57 | PCM.PYCHPN ---
Psychiatric Progress Note - Psychiatric Progress Note Patient seen today, length of contact: Pt evaluated, case discussed w/ team, chart reviewed Patient Chief Complaint: "I'm depressed." Problems Identified/Issues Discussed: Patient continues to report depressed mood w/ poverty of speech, thought blocking, poor eye contact, blunted affect, poor sleep/appetite. He reports CAH to kill himself, but denies current plan/intent. He also report vague paranoia. Medication Change: Yes (Increase Risperdal to 2 mg PO Q12) Medical Record Reviewed: Yes Consults ordered or reviewed: Medicine consult Mental Status Examination - Cognitive Function Orientation: Person, Place, Situation, Time Attention: Poor Concentration: Poor Association: WNL Decription of patient's judgement and insights: Poor I/J - Mood Mood: Depressed - Affect Affect: Constricted, Depressed - Formal Thought Process Formal Thought Process: Hallucinations, Other (Poverty of speech) Psychotic Thoughts and Behaviors: +CAH - Suicidal Ideation Suicidal Ideation: Yes Plan: +CAH to kill himself, denies current plan/intent - Homicidal Ideation Homicidal Ideation: No Goal/Treatment Plan - Goal/Treatment Plan Need for Continued Stay: Remain at risks for inpatient hospitalization, Severe depression anxiety, Discharge may exacerbated symptoms Progress Toward Problem(s) and Goals/Treatment Plan: Major Depressive Disorder w/ Psychotic Symptoms -Individual and group therapy -Medicine consult -Continue Lexapro 20 mg PO Daily -Continue Trazodone 50 mg PO HS -Increase Risperdal to 2 mg PO Q12 -Obtain collateral history -Disposition planning Estimated Date of D/C: 09/27/18
--- NOTE | 2018-09-21 10:02 | CP.PCM.CON ---
History of Present Illness - History of Present Illness History of Present Illness: 63 YR OLD MALE ADMITTED TO THE MEDICAL FLOOR WITH CHEST PAINS THEN TRANSFERRED TO THE PSYCH FLOOR BECAUSE OF MAJOR DEPRESSION. HX OF DEPRESSION AND HTN IN THE PAST Past Patient History - Past Medical History & Family History Past Medical History?: Yes - Past Social History Smoking Status: Never Smoked - CARDIAC Hx Cardiac Disorders: Yes Hx Hypertension: Yes - PULMONARY Hx Respiratory Disorders: No - NEUROLOGICAL Hx Neurological Disorder: No Hx Seizures: No - HEENT Hx HEENT Problems: Yes Hx Cataracts: Yes (right, no sx. yet) - RENAL Hx Chronic Kidney Disease: No - ENDOCRINE/METABOLIC Hx Endocrine Disorders: No - HEMATOLOGICAL/ONCOLOGICAL Hx Blood Disorders: No Hx AIDS: No Hx Human Immunodeficiency Virus (HIV): No - INTEGUMENTARY Hx Dermatological Problems: No - MUSCULOSKELETAL/RHEUMATOLOGICAL Hx Musculoskeletal Disorders: No Hx Falls: No - GASTROINTESTINAL Hx Gastrointestinal Disorders: No - GENITOURINARY/GYNECOLOGICAL Hx Genitourinary Disorders: No - PSYCHIATRIC Hx Anxiety: Yes Hx Depression: Yes Hx Physical Abuse: No Hx Sexual Abuse: No Hx Substance Use: No - SURGICAL HISTORY Hx Surgeries: Yes Hx Herniorrhaphy: Yes - ANESTHESIA Hx Anesthesia: Yes Hx Anesthesia Reactions: No Hx Malignant Hyperthermia: No Has any member of the family had a problem w/ anesthesia?: No Meds Allergies/Adverse Reactions: Allergies Allergy/AdvReac Type Severity Reaction Status Date / Time No Known Allergies Allergy Verified 02/10/15 19:06 - Medications Medications: Current Medications Acetaminophen (Tylenol 325mg Tab) 650 mg PO Q4 PRN PRN Reason: Pain, moderate (4-7) Al Hydrox/Mg Hydrox/Simethicone (Maalox Plus 30 Ml) 30 ml PO Q4 PRN PRN Reason: Dyspepsia Aspirin (Aspirin Chewable) 81 mg PO DAILY [facility] Last Admin: 09/21/18 09:25 Dose: 81 mg Atorvastatin Calcium (Lipitor) 40 mg PO DAILY [facility] Last Admin: 09/21/18 09:27 Dose: 40 mg Bismuth Subsalicylate (Pepto-Bismol) 524 mg PO Q4 PRN PRN Reason: Diarrhea Escitalopram Oxalate (Lexapro) 20 mg PO DAILY [facility] Last Admin: 09/21/18 09:27 Dose: 20 mg Lorazepam (Ativan) 0.5 mg PO HS PRN PRN Reason: Insomnia Stop: 10/04/18 12:35 Lorazepam (Ativan) 0.5 mg PO Q6 PRN PRN Reason: Anixety/Agitation Stop: 10/04/18 12:35 Losartan Potassium (Cozaar) 25 mg PO BID [facility] Last Admin: 09/21/18 09:26 Dose: 25 mg Magnesium Hydroxide (Milk Of Magnesia) 30 ml PO HS PRN PRN Reason: Constipation Metoprolol Succinate (Toprol Xl) 50 mg PO DAILY [facility] Last Admin: 09/21/18 09:27 Dose: 50 mg Nitroglycerin (Nitrostat Sl Tab) 0.4 mg SL Q5M PRN PRN Reason: chest pain Pantoprazole Sodium (Protonix Ec Tab) 40 mg PO DAILY [facility] Last Admin: 09/21/18 09:25 Dose: 40 mg Risperidone (Risperdal M-Tab) 2 mg PO Q12 [facility] Last Admin: 09/21/18 09:26 Dose: 2 mg Trazodone HCl (Desyrel) 50 mg PO HS [facility] Last Admin: 09/20/18 21:07 Dose: 50 mg Physical Exam - Constitutional Appears: Well, No Acute Distress - Head Exam Head Exam: ATRAUMATIC, NORMAL INSPECTION, NORMOCEPHALIC - Eye Exam Eye Exam: EOMI, Normal appearance, PERRL Pupil Exam: NORMAL ACCOMODATION, PERRL - ENT Exam ENT Exam: Mucous Membranes Moist, Normal Exam - Neck Exam Neck exam: Positive for: Normal Inspection - Respiratory Exam Respiratory Exam: Clear to Auscultation Bilateral, NORMAL BREATHING PATTERN - Cardiovascular Exam Cardiovascular Exam: REGULAR RHYTHM - GI/Abdominal Exam GI & Abdominal Exam: Normal Bowel Sounds, Soft. absent: Tenderness - Rectal Exam Rectal Exam: NORMAL INSPECTION - Extremities Exam Extremities exam: Positive for: normal inspection - Back Exam Back exam: NORMAL INSPECTION - Neurological Exam Neurological exam: Alert, CN II-XII Intact, Normal Gait, Oriented x3, Reflexes Normal - Psychiatric Exam Psychiatric exam: Depressed, Flat Affect - Skin Skin Exam: Dry, Intact, Normal Color, Warm Results - Vital Signs Recent Vital Signs: Last Vital Signs Temp 97.8 F 09/21/18 06:00 Pulse 73 09/21/18 09:27 Resp 18 09/21/18 06:00 BP 134/69 09/21/18 09:27 Pulse Ox - Labs Result Diagrams: 09/21/18 05:10 09/21/18 05:10 Labs: Laboratory Results - last 24 hr 09/21/18 09/21/18 09/21/18 05:10 05:10 05:10 WBC 8.4 RBC 4.68 Hgb 14.3 Hct 42.1 MCV 89.9 MCH 30.6 MCHC 34.0 RDW 13.8 Plt Count 151 Sodium 138 Potassium 4.6 Chloride 104 Carbon Dioxide 25 Anion Gap 14 BUN 21 H Creatinine 1.0 Est GFR ( Amer) > 60 Est GFR (Non-Af Amer) > 60 Random Glucose 106 Calcium 9.1 Ferritin 54.4 Total Bilirubin 1.1 AST 30 ALT 51 Alkaline Phosphatase 55 Total Protein 7.3 Albumin 3.9 Globulin 3.4 Albumin/Globulin Ratio 1.2 Triglycerides 127 Cholesterol 122 LDL Cholesterol Direct 81 HDL Cholesterol 35 Vitamin B12 477 Free T4 1.51 Thyroxine (T4) 9.12 TSH 3rd Generation 2.43 Assessment & Plan - Assessment and Plan (Free Text) Assessment: DEPRESSION HYPERTENSION Plan: CONTINUE CURRENT RX WILL FOLLOW WITH YOU - Date & Time Date: 09/21/18 Time: 10:02
[2018-09-21 13:12] LABS: FOLATE > 20.0 ng/mL
[2018-09-22] MEDS: Pantoprazole 40 mg EC Tab PO SCH (09:00)
[2018-09-22] MEDS: Metoprolol Succinate 50 mg XL Tab PO SCH (09:01)
[2018-09-22] MEDS: Risperidone M TAB 2 MG PO SCH ×2 (09:01→21:12)
--- NOTE | 2018-09-22 10:40 | CP.PCM.CON ---
History of Present Illness - History of Present Illness History of Present Illness: Pt is a 63 year old male admitted to [facility] and referred to the service writer for evaluatin. On the DRS, pt scored an overall score of 102. Pt scored within normal limits on Construction tasks. Pt's Memory, Initiation, Conceptualizati on, and Attention skills all fell in the deficient range. Overall 102 Attention 31 Construction 4 Conceptualization 28 Initiation 24 Memory 15 Deficits in cognitive functioning evident on this evaluation. Thank you, Dr. Walker Past Patient History - Past Medical History & Family History Past Medical History?: Yes - Past Social History Smoking Status: Never Smoked - CARDIAC Hx Cardiac Disorders: Yes Hx Hypertension: Yes - PULMONARY Hx Respiratory Disorders: No - NEUROLOGICAL Hx Neurological Disorder: No Hx Seizures: No - HEENT Hx HEENT Problems: Yes Hx Cataracts: Yes (right, no sx. yet) - RENAL Hx Chronic Kidney Disease: No - ENDOCRINE/METABOLIC Hx Endocrine Disorders: No - HEMATOLOGICAL/ONCOLOGICAL Hx Blood Disorders: No Hx AIDS: No Hx Human Immunodeficiency Virus (HIV): No - INTEGUMENTARY Hx Dermatological Problems: No - MUSCULOSKELETAL/RHEUMATOLOGICAL Hx Musculoskeletal Disorders: No Hx Falls: No - GASTROINTESTINAL Hx Gastrointestinal Disorders: No - GENITOURINARY/GYNECOLOGICAL Hx Genitourinary Disorders: No - PSYCHIATRIC Hx Anxiety: Yes Hx Depression: Yes Hx Physical Abuse: No Hx Sexual Abuse: No Hx Substance Use: No - SURGICAL HISTORY Hx Surgeries: Yes Hx Herniorrhaphy: Yes - ANESTHESIA Hx Anesthesia: Yes Hx Anesthesia Reactions: No Hx Malignant Hyperthermia: No Has any member of the family had a problem w/ anesthesia?: No Meds Allergies/Adverse Reactions: Allergies Allergy/AdvReac Type Severity Reaction Status Date / Time No Known Allergies Allergy Verified 02/10/15 19:06 - Medications Medications: Current Medications Acetaminophen (Tylenol 325mg Tab) 650 mg PO Q4 PRN PRN Reason: Pain, moderate (4-7) Al Hydrox/Mg Hydrox/Simethicone (Maalox Plus 30 Ml) 30 ml PO Q4 PRN PRN Reason: Dyspepsia Aspirin (Aspirin Chewable) 81 mg PO DAILY [facility] Last Admin: 09/22/18 09:00 Dose: 81 mg Atorvastatin Calcium (Lipitor) 40 mg PO DAILY [facility] Last Admin: 09/22/18 09:02 Dose: 40 mg Bismuth Subsalicylate (Pepto-Bismol) 524 mg PO Q4 PRN PRN Reason: Diarrhea Escitalopram Oxalate (Lexapro) 20 mg PO DAILY [facility] Last Admin: 09/22/18 09:02 Dose: 20 mg Lorazepam (Ativan) 0.5 mg PO HS PRN PRN Reason: Insomnia Stop: 10/04/18 12:35 Lorazepam (Ativan) 0.5 mg PO Q6 PRN PRN Reason: Anixety/Agitation Stop: 10/04/18 12:35 Losartan Potassium (Cozaar) 25 mg PO BID [facility] Last Admin: 09/22/18 09:01 Dose: 25 mg Magnesium Hydroxide (Milk Of Magnesia) 30 ml PO HS PRN PRN Reason: Constipation Metoprolol Succinate (Toprol Xl) 50 mg PO DAILY [facility] Last Admin: 09/22/18 09:01 Dose: 50 mg Nitroglycerin (Nitrostat Sl Tab) 0.4 mg SL Q5M PRN PRN Reason: chest pain Pantoprazole Sodium (Protonix Ec Tab) 40 mg PO DAILY [facility] Last Admin: 09/22/18 09:00 Dose: 40 mg Risperidone (Risperdal M-Tab) 2 mg PO Q12 [facility] Last Admin: 09/22/18 09:01 Dose: 2 mg Trazodone HCl (Desyrel) 50 mg PO HS [facility] Last Admin: 09/21/18 21:06 Dose: 50 mg Results - Vital Signs Recent Vital Signs: Last Vital Signs Temp 97.3 F L 09/22/18 05:47 Pulse 77 09/22/18 09:01 Resp 19 09/22/18 05:47 BP 129/73 09/22/18 09:01 Pulse Ox - Labs Result Diagrams: 09/21/18 05:10 09/21/18 05:10 Labs: Laboratory Results - last 24 hr 09/21/18 09/21/18 09/21/18 05:10 05:10 05:10 Hemoglobin A1c 5.6 25-OH Vitamin D Total Folate > 20.0 RPR Nonreactive 09/21/18 05:10 Hemoglobin A1c 25-OH Vitamin D Total 21.2 L Folate RPR
--- NOTE | 2018-09-22 10:48 | PCM.PYCHPN ---
Psychiatric Progress Note - Psychiatric Progress Note Patient seen today, length of contact: Pt evaluated, case discussed w/ team, chart reviewed Patient Chief Complaint: "I'm depressed." Problems Identified/Issues Discussed: Patient continues to report depressed mood w/ poverty of speech, thought blocking, poor eye contact, blunted affect, poor sleep/appetite, psychomotor retardation. He denies current AH. He reports that he was compliant with Risperdal prior to admission, despite being confronted with the fact that his daughter found the bottles of Risperdal full at home. Medication Change: No Medical Record Reviewed: Yes Consults ordered or reviewed: Medicine consult, Psychology consult Mental Status Examination - Cognitive Function Orientation: Person, Place, Situation, Time Memory: Impaired Attention: Poor Concentration: Poor Decription of patient's judgement and insights: Poor I/J - Mood Mood: Depressed - Affect Affect: Blunted, Depressed - Speech Speech: Soft - Formal Thought Process Formal Thought Process: Other (Thought blocking) Psychotic Thoughts and Behaviors: Denies acute AH - Suicidal Ideation Suicidal Ideation: No - Homicidal Ideation Homicidal Ideation: No Goal/Treatment Plan - Goal/Treatment Plan Need for Continued Stay: Remain at risks for inpatient hospitalization, Severe depression anxiety, Discharge may exacerbated symptoms Progress Toward Problem(s) and Goals/Treatment Plan: Major Depressive Disorder w/ Psychotic Symptoms -Individual and group therapy -Medicine consult -Continue Lexapro 20 mg PO Daily -Continue Trazodone 50 mg PO HS -Continue Risperdal 2 mg PO Q12 -Disposition planning Estimated Date of D/C: 09/27/18
--- NOTE | 2018-09-22 14:47 | CP.PCM.PN ---
Subjective - Date & Time of Evaluation Date of Evaluation: 09/22/18 Time of Evaluation: 14:48 - Subjective Subjective: clinically unchanged chest pain free no apparent distress psych care in progress will continue present care will follow with you Objective - Vital Signs/Intake and Output Vital Signs (last 24 hours): Temp Pulse Resp BP Pulse Ox 97.3 F L 77 19 129/73 09/22/18 05:47 09/22/18 09:01 09/22/18 05:47 09/22/18 09:01 - Medications Medications: Current Medications Acetaminophen (Tylenol 325mg Tab) 650 mg PO Q4 PRN PRN Reason: Pain, moderate (4-7) Al Hydrox/Mg Hydrox/Simethicone (Maalox Plus 30 Ml) 30 ml PO Q4 PRN PRN Reason: Dyspepsia Aspirin (Aspirin Chewable) 81 mg PO DAILY [facility] Last Admin: 09/22/18 09:00 Dose: 81 mg Atorvastatin Calcium (Lipitor) 40 mg PO DAILY [facility] Last Admin: 09/22/18 09:02 Dose: 40 mg Bismuth Subsalicylate (Pepto-Bismol) 524 mg PO Q4 PRN PRN Reason: Diarrhea Escitalopram Oxalate (Lexapro) 20 mg PO DAILY [facility] Last Admin: 09/22/18 09:02 Dose: 20 mg Lorazepam (Ativan) 0.5 mg PO HS PRN PRN Reason: Insomnia Stop: 10/04/18 12:35 Lorazepam (Ativan) 0.5 mg PO Q6 PRN PRN Reason: Anixety/Agitation Stop: 10/04/18 12:35 Losartan Potassium (Cozaar) 25 mg PO BID [facility] Last Admin: 09/22/18 09:01 Dose: 25 mg Magnesium Hydroxide (Milk Of Magnesia) 30 ml PO HS PRN PRN Reason: Constipation Metoprolol Succinate (Toprol Xl) 50 mg PO DAILY [facility] Last Admin: 09/22/18 09:01 Dose: 50 mg Nitroglycerin (Nitrostat Sl Tab) 0.4 mg SL Q5M PRN PRN Reason: chest pain Pantoprazole Sodium (Protonix Ec Tab) 40 mg PO DAILY [facility] Last Admin: 09/22/18 09:00 Dose: 40 mg Risperidone (Risperdal M-Tab) 2 mg PO Q12 [facility] Last Admin: 09/22/18 09:01 Dose: 2 mg Trazodone HCl (Desyrel) 50 mg PO HS [facility] Last Admin: 09/21/18 21:06 Dose: 50 mg - Labs Labs: 09/21/18 05:10 09/21/18 05:10
[2018-09-23] MEDS: Pantoprazole 40 mg EC Tab PO SCH (09:00)
[2018-09-23] MEDS: Metoprolol Succinate 50 mg XL Tab PO SCH (09:01)
[2018-09-23] MEDS: Risperidone M TAB 2 MG PO SCH ×2 (09:01→21:10)
--- NOTE | 2018-09-23 13:22 | PCM.PYCHPN ---
Psychiatric Progress Note - Psychiatric Progress Note Patient seen today, length of contact: Pt evaluated, case discussed w/ team, chart reviewed Patient Chief Complaint: I am alright Problems Identified/Issues Discussed: pt seen in bed, low energy, poor motivation, constricted affect, speech underproductive, continues to be anhedonic and depressed, no reported side effects of medications, denied active thoughts of self harm, denied command hallucinations DSM 5 Symptoms Update: major depression with psychotic features Medication Change: No Medical Record Reviewed: Yes Mental Status Examination - Cognitive Function Orientation: Person, Place, Situation, Time Memory: Impaired Attention: Poor Concentration: Poor - Mood Mood: Depressed - Affect Affect: Blunted, Depressed - Speech Speech: Soft - Formal Thought Process Formal Thought Process: Other Psychotic Thoughts and Behaviors: concrete , with thought blocking - Suicidal Ideation Suicidal Ideation: No - Homicidal Ideation Homicidal Ideation: No Goal/Treatment Plan - Goal/Treatment Plan Need for Continued Stay: Remain at risks for inpatient hospitalization, Severe depression anxiety, Discharge may exacerbated symptoms Progress Toward Problem(s) and Goals/Treatment Plan: continue current medications' monitor pt for psychopharmacological effects and side effect profile Estimated Date of D/C: 09/27/18
[2018-09-24] MEDS: Pantoprazole 40 mg EC Tab PO SCH (08:30)
[2018-09-24] MEDS: Metoprolol Succinate 50 mg XL Tab PO SCH (08:31)
[2018-09-24] MEDS: Risperidone M tab 1 MG PO SCH (08:31)
--- NOTE | 2018-09-24 11:37 | PCM.PYCHPN ---
Psychiatric Progress Note - Psychiatric Progress Note Patient seen today, length of contact: Pt evaluated, case discussed w/ team, chart reviewed Patient Chief Complaint: I am better after the shower Problems Identified/Issues Discussed: pt seen in day room, reported feeling a little better, more interactive with interviewer , speech a little more productive , pt denied any current perceptual disturbances, continues to feel down and depressed because of situation with his , pt would not elaborate more on that , denied active thoughts of self harm on the unit , as per staff pt more compliant today, agreed to shower, and noted to eat breakfast, no reported side effects of medications, daughter heriberto/ phone # [phone] requested to talk with undersigned last evening , pt consent obtained, she verbalized concerns about current dose of risperidone discussed with her at current time will decrease to 3mg daily, explained to her final decision in reference medication management to be discussed with treating psychiatrist on Tuesday she also requested results for neuropsychological testing discussed with her this morning that pt rated high on depression rating scale explained to her that pt also showed some deficits with executive functions, advised her that this may be due to depression related pseudodementia or indication of early dementia, this would be decided after further treatment of depression explained to her that further discussion of test results and possible further treatment plan will be discussed with her by his treating psychiatrist and treatment team on the unit DSM 5 Symptoms Update: major depression with psychotic features Medication Change: No Medical Record Reviewed: Yes Mental Status Examination - Cognitive Function Orientation: Person, Place, Situation, Time Memory: Impaired Attention: Poor Concentration: Poor - Mood Mood: Depressed - Affect Affect: Blunted, Depressed - Speech Speech: Soft - Formal Thought Process Formal Thought Process: Other Psychotic Thoughts and Behaviors: concrete , with thought blocking - Suicidal Ideation Suicidal Ideation: No - Homicidal Ideation Homicidal Ideation: No Goal/Treatment Plan - Goal/Treatment Plan Need for Continued Stay: Remain at risks for inpatient hospitalization, Severe depression anxiety, Discharge may exacerbated symptoms Progress Toward Problem(s) and Goals/Treatment Plan: continue with lexapro 20mg decrease risperidone to 1mg daily and 2mg qhs neuropsychological test results noted and discussed with daughter upon pt consent monitor pt for psychopharmacological effects and side effect profile Estimated Date of D/C: 09/27/18
[2018-09-24] MEDS: Risperidone M TAB 2 MG PO SCH (21:15)
--- NOTE | 2018-09-25 08:22 | CP.PCM.PN ---
Subjective - Date & Time of Evaluation Date of Evaluation: 09/25/18 Time of Evaluation: 08:22 - Subjective Subjective: CHEST PAIN FREE\ NO APPARENT DISTRESS Objective - Vital Signs/Intake and Output Vital Signs (last 24 hours): Temp Pulse Resp BP Pulse Ox 97.7 F 75 19 116/71 09/25/18 05:30 09/25/18 05:30 09/25/18 05:30 09/25/18 05:30 - Medications Medications: Current Medications Acetaminophen (Tylenol 325mg Tab) 650 mg PO Q4 PRN PRN Reason: Pain, moderate (4-7) Al Hydrox/Mg Hydrox/Simethicone (Maalox Plus 30 Ml) 30 ml PO Q4 PRN PRN Reason: Dyspepsia Aspirin (Aspirin Chewable) 81 mg PO DAILY [facility] Last Admin: 09/24/18 08:30 Dose: 81 mg Atorvastatin Calcium (Lipitor) 40 mg PO DAILY [facility] Last Admin: 09/24/18 08:30 Dose: 40 mg Bismuth Subsalicylate (Pepto-Bismol) 524 mg PO Q4 PRN PRN Reason: Diarrhea Escitalopram Oxalate (Lexapro) 20 mg PO DAILY [facility] Last Admin: 09/24/18 08:30 Dose: 20 mg Lorazepam (Ativan) 0.5 mg PO HS PRN PRN Reason: Insomnia Stop: 10/04/18 12:35 Lorazepam (Ativan) 0.5 mg PO Q6 PRN PRN Reason: Anixety/Agitation Stop: 10/04/18 12:35 Losartan Potassium (Cozaar) 25 mg PO BID [facility] Last Admin: 09/24/18 17:10 Dose: 25 mg Magnesium Hydroxide (Milk Of Magnesia) 30 ml PO HS PRN PRN Reason: Constipation Metoprolol Succinate (Toprol Xl) 50 mg PO DAILY [facility] Last Admin: 09/24/18 08:31 Dose: 50 mg Nitroglycerin (Nitrostat Sl Tab) 0.4 mg SL Q5M PRN PRN Reason: chest pain Pantoprazole Sodium (Protonix Ec Tab) 40 mg PO DAILY [facility] Last Admin: 09/24/18 08:30 Dose: 40 mg Risperidone (Risperdal M-Tab) 1 mg PO DAILY [facility] Last Admin: 09/24/18 08:31 Dose: 1 mg Risperidone (Risperdal M-Tab) 2 mg PO HS [facility] Last Admin: 09/24/18 21:15 Dose: 2 mg Trazodone HCl (Desyrel) 50 mg PO [facility] Last Admin: 09/24/18 21:15 Dose: 50 mg - Labs Labs: 09/21/18 05:10 09/21/18 05:10 - Constitutional Appears: No Acute Distress - Head Exam Head Exam: ATRAUMATIC, NORMAL INSPECTION, NORMOCEPHALIC - Eye Exam Eye Exam: EOMI, Normal appearance, PERRL Pupil Exam: NORMAL ACCOMODATION, PERRL - ENT Exam ENT Exam: Mucous Membranes Moist, Normal Exam - Neck Exam Neck Exam: Full ROM, Normal Inspection. absent: Lymphadenopathy - Respiratory Exam Respiratory Exam: Clear to Ausculation Bilateral, NORMAL BREATHING PATTERN - Cardiovascular Exam Cardiovascular Exam: REGULAR RHYTHM, +S1, +S2. absent: Murmur - GI/Abdominal Exam GI & Abdominal Exam: Soft, Normal Bowel Sounds. absent: Tenderness - Rectal Exam Rectal Exam: NORMAL INSPECTION - Extremities Exam Extremities Exam: Full ROM, Normal Capillary Refill, Normal Inspection. absent: Joint Swelling, Pedal Edema - Back Exam Back Exam: NORMAL INSPECTION - Neurological Exam Neurological Exam: Alert, Awake, CN II-XII Intact, Normal Gait, Oriented x3 - Psychiatric Exam Psychiatric exam: Flat Affect - Skin Skin Exam: Dry, Intact, Normal Color, Warm Assessment and Plan - Assessment and Plan (Free Text) Assessment: CHEST PAIN RESOLVED MAJOR DEPRESSION Plan: CONTINUE CURRENT RX
[2018-09-25] MEDS: Pantoprazole 40 mg EC Tab PO SCH (08:33)
[2018-09-25] MEDS: Risperidone M tab 1 MG PO SCH (08:33)
[2018-09-25] MEDS: Metoprolol Succinate 50 mg XL Tab PO SCH (08:34)
--- NOTE | 2018-09-25 12:13 | PCM.PYCHPN ---
Psychiatric Progress Note - Psychiatric Progress Note Patient seen today, length of contact: Pt evaluated, case discussed w/ team, chart reviewed Patient Chief Complaint: "I'm depressed." Problems Identified/Issues Discussed: Patient continues to report feeling depressed, w/ poverty of speech, thought blocking, poor eye contact, blunted affect, poor sleep/appetite, psychomotor retardation. He denies current AH or SI. Framing Mill Supervisor spoke with patient's daughter, Jayla [phone], who expressed concern that patient was being treated with Risperdal 4 mg total, which was decreased to 3 mg yesterday. [employer] Supervisor attempted to inform patient's daughter that the patients symptoms are likely secondary to depression w/ psychosis and neurocognitive impairment. Patient's daughter was argumentative with freelance writer, called freelance writer "cold and heartless", stated that freelance writer "just treats patients like he's nobody" and made several attempts to try to dictate patient treatment, despite not having power or commercial insurance underwriter over the patient. [employer] Supervisor informed patient's daughter that patient may need treatment with more medications if patient does not improve clinically. She was informed that Trazodone will be increased today. Medication Change: Yes (Increase Trazodone) Medical Record Reviewed: Yes Consults ordered or reviewed: Medicine consult, Psychology consult Mental Status Examination - Cognitive Function Orientation: Person, Place, Situation, Time Memory: Impaired Attention: Poor Concentration: Poor Decription of patient's judgement and insights: Poor I/J - Mood Mood: Depressed - Affect Affect: Blunted, Depressed - Speech Speech: Soft - Formal Thought Process Formal Thought Process: Other (Thought blocking) Psychotic Thoughts and Behaviors: Denies AH/VH/paranoia/delusions - Suicidal Ideation Suicidal Ideation: No - Homicidal Ideation Homicidal Ideation: No Goal/Treatment Plan - Goal/Treatment Plan Need for Continued Stay: Remain at risks for inpatient hospitalization, Severe depression anxiety, Discharge may exacerbated symptoms Progress Toward Problem(s) and Goals/Treatment Plan: Major Depressive Disorder w/ Psychotic Symptoms; Major Neurocognitive Impairment -Individual and group therapy -Medicine consult -Continue Lexapro 20 mg PO Daily -Increase Trazodone -Continue Risperdal 1 mg PO Daily/ 2 mg PO HS -Disposition planning Estimated Date of D/C: 09/29/18
[2018-09-25] MEDS: Risperidone M TAB 2 MG PO SCH (21:03)
[2018-09-26] MEDS: Metoprolol Succinate 50 mg XL Tab PO SCH (09:00)
[2018-09-26] MEDS: Risperidone M tab 1 MG PO SCH (09:01)
[2018-09-26] MEDS: Pantoprazole 40 mg EC Tab PO SCH (09:01)
--- NOTE | 2018-09-26 09:55 | PCM.PYCHPN ---
Psychiatric Progress Note - Psychiatric Progress Note Patient seen today, length of contact: Pt evaluated, case discussed w/ team, chart reviewed Patient Chief Complaint: "I'm depressed." Problems Identified/Issues Discussed: Patient continues to report feeling depressed, w/ poverty of speech, thought blocking, poor eye contact, blunted affect, poor appetite, psychomotor retardation. He denies current AH or SI. He reports improved sleep. Medication Change: No Medical Record Reviewed: Yes Consults ordered or reviewed: Medicine consult, Psychology consult Mental Status Examination - Cognitive Function Orientation: Person, Place, Situation, Time Memory: Impaired Attention: Poor Concentration: Poor Decription of patient's judgement and insights: Poor I/J - Mood Mood: Depressed - Affect Affect: Blunted, Depressed - Speech Speech: Soft - Formal Thought Process Formal Thought Process: Other (Thought blocking) Psychotic Thoughts and Behaviors: Denies AH/VH/paranoia/delusions - Suicidal Ideation Suicidal Ideation: No - Homicidal Ideation Homicidal Ideation: No Goal/Treatment Plan - Goal/Treatment Plan Need for Continued Stay: Remain at risks for inpatient hospitalization, Severe depression anxiety, Discharge may exacerbated symptoms Progress Toward Problem(s) and Goals/Treatment Plan: Major Depressive Disorder w/ Psychotic Symptoms; Major Neurocognitive Impairment vs Pseudodementia secondary to severe depression -Individual and group therapy -Medicine consult -Continue Lexapro 20 mg PO Daily -Continue Trazodone 100 mg PO HS -Continue Risperdal 1 mg PO Daily/ 2 mg PO HS -Disposition planning Estimated Date of D/C: 09/29/18
[2018-09-26 15:42] VITALS: O2SAT 19
[2018-09-26] MEDS: Risperidone M TAB 2 MG PO SCH (21:08)
--- NOTE | 2018-09-27 08:07 | CP.PCM.PN ---
Subjective - Date & Time of Evaluation Date of Evaluation: 09/27/18 Time of Evaluation: 08:07 - Subjective Subjective: STILL DEPRESSED NO APPARENT DISTRESS VSS Objective - Vital Signs/Intake and Output Vital Signs (last 24 hours): Temp Pulse Resp BP Pulse Ox 98 F 76 19 124/71 19 L 09/27/18 06:00 09/27/18 06:00 09/27/18 06:00 09/27/18 06:00 09/26/18 15:41 - Medications Medications: Current Medications Acetaminophen (Tylenol 325mg Tab) 650 mg PO Q4 PRN PRN Reason: Pain, moderate (4-7) Al Hydrox/Mg Hydrox/Simethicone (Maalox Plus 30 Ml) 30 ml PO Q4 PRN PRN Reason: Dyspepsia Aspirin (Aspirin Chewable) 81 mg PO DAILY [facility] Last Admin: 09/26/18 09:01 Dose: 81 mg Atorvastatin Calcium (Lipitor) 40 mg PO DAILY [facility] Last Admin: 09/26/18 08:59 Dose: 40 mg Bismuth Subsalicylate (Pepto-Bismol) 524 mg PO Q4 PRN PRN Reason: Diarrhea Escitalopram Oxalate (Lexapro) 20 mg PO DAILY [facility] Last Admin: 09/26/18 08:59 Dose: 20 mg Lorazepam (Ativan) 0.5 mg PO HS PRN PRN Reason: Insomnia Stop: 10/04/18 12:35 Lorazepam (Ativan) 0.5 mg PO Q6 PRN PRN Reason: Anixety/Agitation Stop: 10/04/18 12:35 Losartan Potassium (Cozaar) 25 mg PO BID [facility] Last Admin: 09/26/18 17:22 Dose: Not Given Magnesium Hydroxide (Milk Of Magnesia) 30 ml PO HS PRN PRN Reason: Constipation Metoprolol Succinate (Toprol Xl) 50 mg PO DAILY [facility] Last Admin: 09/26/18 09:00 Dose: 50 mg Nitroglycerin (Nitrostat Sl Tab) 0.4 mg SL Q5M PRN PRN Reason: chest pain Pantoprazole Sodium (Protonix Ec Tab) 40 mg PO DAILY [facility] Last Admin: 09/26/18 09:01 Dose: 40 mg Risperidone (Risperdal M-Tab) 1 mg PO DAILY [facility] Last Admin: 09/26/18 09:01 Dose: 1 mg Risperidone (Risperdal M-Tab) 2 mg PO HS [facility] Last Admin: 09/26/18 21:08 Dose: 2 mg Trazodone HCl (Desyrel) 100 mg PO [facility] Last Admin: 09/26/18 21:08 Dose: 100 mg - Labs Labs: 09/21/18 05:10 09/21/18 05:10 - Constitutional Appears: No Acute Distress - Head Exam Head Exam: ATRAUMATIC, NORMAL INSPECTION, NORMOCEPHALIC - Eye Exam Eye Exam: EOMI, Normal appearance, PERRL Pupil Exam: NORMAL ACCOMODATION, PERRL - ENT Exam ENT Exam: Mucous Membranes Moist, Normal Exam - Neck Exam Neck Exam: Full ROM, Normal Inspection. absent: Lymphadenopathy - Respiratory Exam Respiratory Exam: Clear to Ausculation Bilateral, NORMAL BREATHING PATTERN - Cardiovascular Exam Cardiovascular Exam: REGULAR RHYTHM, +S1, +S2. absent: Murmur - GI/Abdominal Exam GI & Abdominal Exam: Soft, Normal Bowel Sounds. absent: Tenderness - Rectal Exam Rectal Exam: NORMAL INSPECTION - Extremities Exam Extremities Exam: Full ROM, Normal Capillary Refill, Normal Inspection. absent: Joint Swelling, Pedal Edema - Back Exam Back Exam: NORMAL INSPECTION - Neurological Exam Neurological Exam: Alert, Awake, CN II-XII Intact, Normal Gait, Oriented x3 - Psychiatric Exam Psychiatric exam: Depressed, Normal Affect - Skin Skin Exam: Dry, Intact, Normal Color, Warm Assessment and Plan - Assessment and Plan (Free Text) Assessment: MAJOR DEPRESSION CHEST PAIN RESOLVED HYPERLIPIDEMIA HTN Plan: CONTINUE CURRENT RX REPEAT LABS IN AM
[2018-09-27] MEDS: Risperidone M tab 1 MG PO SCH (08:36)
[2018-09-27] MEDS: Metoprolol Succinate 50 mg XL Tab PO SCH (08:36)
[2018-09-27] MEDS: Pantoprazole 40 mg EC Tab PO SCH (08:36)
--- NOTE | 2018-09-27 11:01 | PCM.PYCHPN ---
Psychiatric Progress Note - Psychiatric Progress Note Patient seen today, length of contact: Pt evaluated, case discussed w/ team, chart reviewed Patient Chief Complaint: "I'm feeling better." Problems Identified/Issues Discussed: Patient and patient's daughter, Jayla [phone], are requesting that the patient be discharged to home tomorrow. Patient reports that his mood is improving. He continues to have some psychomotor retardation, but he talkative and engaged in the community. We discussed continued titration of Risperdal and both patient and daughter were in agreement. Grain Broker discussed the option of ECT, but neither patient nor daughter are agreeable to ECT at this time. No AH/VH/SI/HI. +Improved appetite and sleep. Medication Change: Yes (Increase Risperdal) Medical Record Reviewed: Yes Consults ordered or reviewed: Medicine consult, Psychology consult Mental Status Examination - Cognitive Function Orientation: Person, Place, Situation, Time Memory: Impaired Decription of patient's judgement and insights: Improving I/J - Mood Mood: Depressed - Affect Affect: Constricted - Speech Speech: Appropriate - Formal Thought Process Formal Thought Process: No Impairment Psychotic Thoughts and Behaviors: Denies AH/VH/paranoia/delusions - Suicidal Ideation Suicidal Ideation: No - Homicidal Ideation Homicidal Ideation: No Goal/Treatment Plan - Goal/Treatment Plan Need for Continued Stay: Severe depression anxiety, Discharge may exacerbated symptoms Progress Toward Problem(s) and Goals/Treatment Plan: Major Depressive Disorder w/ Psychotic Symptoms; Major Neurocognitive Impairment vs Pseudodementia secondary to severe depression -Individual and group therapy -Medicine consult -Continue Lexapro 20 mg PO Daily -Continue Trazodone 100 mg PO HS -Increase Risperdal to 2 mg PO Q12 -Disposition planning- patient to be discharged tomorrow under the care of his daughter Estimated Date of D/C: 09/28/18
[2018-09-28 06:17] VITALS: PULSE 92; RESP 19; TEMP 98.4
[2018-09-28 07:25] LABS: BLOOD UREA NITROGEN 21 mg/dl (9-20); CALCIUM 9.1 mg/dL (8.4-10.2); GFR NON-AFRICAN AMERICAN > 60; HDL CHOLESTEROL 35 MG/DL (30-70)
[2018-09-28 07:36] LABS: HEMOGLOBIN 13.8 g/dL (12.0-18.0); LDL CHOLESTEROL 78 mg/dL (0-129); MEAN CELL VOLUME 89.9 fl (80.0-94.0); MEAN CORPUSCULAR HEMOGLOBIN 30.3 pg (27.0-31.0); MEAN CORPUSCULAR HGB CONC 33.7 g/dL (33.0-37.0); RBC 4.56 Mil/uL (4.40-5.90); RED CELL DISTRIBUTION WIDTH 13.9 % (11.5-14.5)
[2018-09-28] MEDS: Pantoprazole 40 mg EC Tab PO SCH (08:39)
[2018-09-28] MEDS: Metoprolol Succinate 50 mg XL Tab PO SCH (08:39)
[2018-09-28 08:40] VITALS: BP 138/89
--- NOTE | 2018-09-28 09:00 | PCM.PYCHDC ---
Mental Status Examination - Mental Status Examination Orientation: Person, Place, Situation, Time Memory: Impaired Mood: Neutral Affect: Broad Speech: Appropriate Association: WNL Fund of Knowledge: WNL Formal Thought Process: No Impairment Description of patient's judgement and insight: Fair I/J Psychotic Thoughts and Behaviors: Denies AH/VH/paranoia/delusions Suicidal Ideation: No Current Homicidal Ideation?: No Discharge Summary - Discharge Note Reason for Hospitalization: HPI: 63 yo male w/ h/o depression w/ psychotic features, transferred from the medical unit where he was evaluated for chest pain, now resolved. Patient presents with depression, low mood, low energy, poverty of speech, denies acute psychosis (AH/VH) but seems internally preoccupied, poor sleep. He denies acute SI/HI, but reported suicidal ideation on previous evaluation today. PPHx: H/o depression and suicide attempt in February 2018 by jumping in a river, was hospitalized at [facility] at that time; current outpatient tx w/ Dr. Krishnan, on Lexapro and Risperdal PMHx: HTN, HLD, GERD, Hernia, R eye cataract ALL: NKDA SHx: Lives w/ , has two adult children (), [facility]; denies drugs/etoh/cig use Laboratory Data: Abnormal Lab Results 09/28/18 09/28/18 06:35 06:35 WBC 8.0 RBC 4.56 Hgb 13.8 Hct 41.0 MCV 89.9 MCH 30.3 MCHC 33.7 RDW 13.9 Plt Count 157 Sodium 140 Potassium 4.6 Chloride 106 Carbon Dioxide 25 Anion Gap 14 BUN 21 H Creatinine 0.9 Est GFR ( Amer) > 60 Est GFR (Non-Af Amer) > 60 Random Glucose 110 Calcium 9.1 Triglycerides 94 D Cholesterol 117 LDL Cholesterol Direct 78 HDL Cholesterol 35 Consultations:: List each consultation separately and include: 1. Reason for request. 2. Findings. 3. Follow-up Consultations: Medicine consult, Psychology consult Summary of Hospital Course include:: 1. Description of specific treatment plan utilized for patients during their course of treatmen. 2. Summarize the time- course for resolution of acute symptoms and/or regressed behaviors. 3. Describe issues identified and worked on during hospitalization. 4. Describe medication utilized. 5. Describe medical problems identified and treated. 6. Reassessment of suicide risk Summary of Hospital Course: Patient was admitted to the psychiatry unit. Individual and group therapy were provided. Patient was stabilized on Lexapro 20 mg PO Daily, Risperdal 2 mg PO Q12 hr and Trazodone 100 mg PO HS. Patient reports that his mood has improved. He denies acute anxiety/AH/VH/SI/HI. He is psychiatrically stable for discharge at this time. 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 secondary to severe depression -Individual and group therapy -Medicine consult -Continue Lexapro 20 mg PO Daily -Continue Trazodone 100 mg PO HS -Continue Risperdal 2 mg PO Q12 -Disposition planning- patient to be discharged under the care of his daughter Prescriptions/Medication Reconciliation: Aspirin [Aspirin Chewable] 81 mg PO DAILY #30 chew Atorvastatin [Lipitor] 40 mg PO DAILY #30 tab Escitalopram [Lexapro] 20 mg PO DAILY #30 tab Losartan [Cozaar] 25 mg PO BID #60 tab Metoprolol Succinate XL [Toprol XL] 50 mg PO DAILY #30 tab Pantoprazole [Protonix EC Tab] 40 mg PO DAILY #30 ect risperiDONE [RisperDAL Tab] 2 mg PO Q12 #60 tab traZODone [Desyrel] 100 mg PO HS #30 tab - Smoking Cessation Smoking Cessation Medication prescribed: No Reason for not providing: Not indicated - Antipsychotic Medications Pt discharged on 2 or more routine antipsychotic medications: No
== END 2018-09-28 13:30 | disposition home or self-care (01) | DRG 885 ==
LOC: H.STEP 12:33 → UNDOADMIN 12:53 → H.STEP 09-21 18:07
PROVIDERS: ADMIT Psychiatry & Neurology Psychiatry; ATTEND Psychiatry & Neurology Psychiatry
PROC: GZHZZZZ Group Psychotherapy (ICD-10-PCS; principal; 2018-09-20)
PROC: GZ58ZZZ Individual Psychotherapy, Cognitive-Behavioral (ICD-10-PCS; 2018-09-20)
DX: F32.3 Major depressive disorder, single episode, severe with psychotic features (principal); F06.8 Other specified mental disorders due to known physiological condition; F41.9 Anxiety disorder, unspecified; I10 Essential (primary) hypertension; E78.5 Hyperlipidemia, unspecified; K21.9 Gastro-esophageal reflux disease without esophagitis; Z91.5 Personal history of self-harm; Z79.899 Other long term (current) drug therapy